=== PATIENT | female | born 1950 | race Caucasian/White ===

== ENCOUNTER 2021-05-11 14:36 | Outpatient (CLI) | payer MEDICARE, SELFPAY ==
--- NOTE | 2021-05-11 14:58 | MR_ITS ---
WS: [id number] MRI BRAIN WITH HIGH-RESOLUTION IMAGING THROUGH THE INTERNAL AUDITORY CANALS WITHOUT CONTRAST HISTORY: HEARING Loss; central PERFORATION TYMPANIC MEMBRANE. COMPARISON: None available. TECHNIQUE: Multiplanar, multisequence imaging is performed through the brain. Additional 3 mm imaging performed in multiple planes through the internal auditory canal. No contrast given. Unable to obtain IV access. No acute intracranial hemorrhage, midline shift, edema or mass effect. Mild symmetric volume loss and mild subcortical, bilateral T2 and FLAIR signal hyperintensities. Appr opriate for the patient's age. Cerebellum and melisa are negative. No mass or abnormal signal at the ce rebellopontine angles. Meckel's cave is now normal. Ventricles and extra-axial spaces are normal. No inferior displacement of cerebellar tonsils. Clivus and pituitary gland are normal. Internal and external auditory canals: Unremarkable. Cranial nerves VII and VIII complexes: Unremarkable. No enhancement or mass. Cerebellopontine angles: Normal. Paranasal sinuses: Normal. Mastoid air cells: There is severe bilateral abnormality noted within the mastoid air cells. Increase d T2 signal throughout the mastoid air cells. The abnormal signal and fluid within the mastoid air ce lls extends towards the skull base and into the petrous bone. The abnormal signal is closely associat ed with the 7th and 8th cranial nerve complexes and also extends into the petrous apices. Calvarium and scalp: Normal. Visualized nap[place]ute of Liu and dural venous sinuses demonstrate no abnormality. MR/MR iac's wo con [id number] IMPRESSION: 1. No mass or signal abnormality at the internal auditory canals. 2. Unable to achieve IV access for postcontrast imaging. 3. There is significant signal abnormality within the mastoid air cells consis tent with fluid. Fluid extensively distending the mastoid air cells and extendi ng into the petrous apices and also surrounding the 7th and 8th cranial nerve c omplexes and obscuring the semicircular canals. 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
== END 2021-05-11 14:37 | disposition home or self-care (01) ==
LOC: RADSHAW 14:42
PROVIDERS: PCP Family Medicine; Visit Provider Specialist
DX: H69.83 Other specified disorders of Eustachian tube, bilateral (principal); H72.01 Central perforation of tympanic membrane, right ear; H90.2 Conductive hearing loss, unspecified; H90.8 Mixed conductive and sensorineural hearing loss, unspecified
CPT/HCPCS: 70551